=== PATIENT | female | born 1965 | race Caucasian/White ===

== ENCOUNTER 2016-10-25 20:56 | Emergency (ER) | payer OTHER ==
[2016-10-25 22:14] LABS: UA SPECIFIC GRAVITY <=1.005 (1.005-1.035); microscopic required? YES; urine erythrocyte TRACE (NEGATIVE)
[2016-10-25 22:21] LABS: PLATELET COUNT 261 x10^3mcL (130-400)
[2016-10-25 22:24] LABS: CALCIUM 9.2 mg/dL (8.5-10.1); CARBON DIOXIDE 20.2 mmol/L (21-32); CHLORIDE SERUM 104 mmol/L (98-107); CREATININE SERUM 0.6 mg/dL (0.6-1.0); GFR1 > 60 mL/min; GLUCOSE SERUM 93 mg/dL (74-106); POTASSIUM SERUM 3.6 mmol/L (3.5-5.1); SODIUM SERUM 137 mmol/L (136-145)
[2016-10-25 22:25] LABS: RED CELL DISTRIBUTION WIDTH 15.2 % (11.5-14.5)
[2016-10-25 22:35] LABS: ALBUMIN 3.9 g/dL (3.4-5.0); ALKALINE PHOSPHATASE 91 U/L (46-116); ALT/SGPT 36 U/L (14-59); AMYLASE 41 U/L (25-115); AST/SGOT 38 U/L (15-37); BILIRUBIN TOTAL 0.92 mg/dL (0.20-1.00); CHOLESTEROL 195 mg/dL (<200); LIPASE 136 IU/L (73-393); T4(THYROXINE) 9.9 ug/dL (4.7-13.3); TOTAL PROTEIN, SERUM 7.9 g/dL (6.4-8.2)
[2016-10-25 22:36] LABS: HDL CHOLESTEROL 88 mg/dL (40-60)
[2016-10-25 23:28] LABS: BAND NEUTROPHIL 4 % (0-10); BASOPHIL 0 % (0-2); MONOCYTE 3 % (0-7); SEGMENTED NEUTROPHILS 64 % (37-75)
[2016-10-25 23:32] LABS: rbc morphology (normal/abnorm) ABNORMAL (NORMAL)
[2016-10-26 00:44] VITALS: BP 121/72
== END 2016-10-26 00:44 | disposition home or self-care (01) ==
LOC: ED 20:56
PROVIDERS: Emergency Medicine
DX: R13.10 Dysphagia, unspecified (principal)
CPT/HCPCS: 83880

== ENCOUNTER 2017-07-26 19:22 | Emergency (ER) | payer OTHER ==
[~2017-07-26] VITALS: Ht 157.5 cm; Wt 93.0 kg
[2017-07-26 19:41] VITALS: Ht 157.5 cm; Wt 93.0 kg
[2017-07-26 20:29] LABS: CALCIUM 8.8 mg/dL (8.5-10.1); CARBON DIOXIDE 25.6 mmol/L (21-32); CHLORIDE SERUM 108 mmol/L (98-107); CREATININE SERUM 0.6 mg/dL (0.6-1.0); GFR1 > 60 mL/min; GLUCOSE SERUM 133 mg/dL (74-106); POTASSIUM SERUM 3.7 mmol/L (3.5-5.1); SODIUM SERUM 144 mmol/L (136-145)
[2017-07-26 20:38] LABS: ALBUMIN 3.5 g/dL (3.4-5.0); ALKALINE PHOSPHATASE 90 U/L (46-116); ALT/SGPT 60 U/L (14-59); AST/SGOT 99 U/L (15-37); BILIRUBIN TOTAL 0.35 mg/dL (0.20-1.00); LIPASE 180 IU/L (73-393); TOTAL PROTEIN, SERUM 7.3 g/dL (6.4-8.2)
[2017-07-26 22:01] VITALS: BP 131/74
== END 2017-07-26 22:01 | disposition home or self-care (01) ==
LOC: ED 19:22
PROVIDERS: Emergency Medicine
DX: K80.20 Calculus of gallbladder without cholecystitis without obstruction (principal)
CPT/HCPCS: Q0092

== ENCOUNTER 2017-07-26 22:57 | Emergency (ER) | payer OTHER | END 2017-07-26 23:42 | disposition left against medical advice (07) | LOC: ED 22:57 | DX: Z53.21 Procedure and treatment not carried out due to patient leaving prior to being seen by health care provider (principal) ==

== ENCOUNTER 2019-08-26 18:26 | Emergency (ER) | payer OTHER ==
[~2019-08-26] VITALS: Ht 154.9 cm; Wt 99.3 kg
[2019-08-26 19:09] VITALS: Ht 154.9 cm; Wt 99.3 kg
[2019-08-26 19:53] LABS: BASOPHIL % 0.7 % (0-2); PLATELET COUNT 333 x10^3mcL (130-400); RED CELL DISTRIBUTION WIDTH 14.5 % (11.5-14.5)
[2019-08-26 20:00] LABS: CALCIUM 9.5 mg/dL (8.5-10.1); CARBON DIOXIDE 27.5 mmol/L (21-32); CHLORIDE SERUM 106 mmol/L (98-107); CREATININE SERUM 0.8 mg/dL (0.6-1.0); GFR1 > 60 mL/min; GLUCOSE SERUM 111 mg/dL (74-106); POTASSIUM SERUM 3.8 mmol/L (3.5-5.1); SODIUM SERUM 144 mmol/L (136-145)
[2019-08-26 20:05] LABS: ALBUMIN 3.8 g/dL (3.4-5.0); ALKALINE PHOSPHATASE 146 U/L (46-116); ALT/SGPT 194 U/L (14-59); AMYLASE 40 U/L (25-115); AST/SGOT 307 U/L (15-37); BILIRUBIN TOTAL 1.1 mg/dL (0.20-1.00); LIPASE 155 IU/L (73-393); TOTAL PROTEIN, SERUM 7.7 g/dL (6.4-8.2)
[2019-08-26 20:21] LABS: UA SPECIFIC GRAVITY 1.015 (1.005-1.035); microscopic required? YES; urine erythrocyte 1+ (NEGATIVE)
[2019-08-26 23:22] VITALS: BP 129/78
== END 2019-08-26 23:22 | disposition home or self-care (01) ==
LOC: ED 18:26
PROVIDERS: Emergency Medicine
DX: K80.50 Calculus of bile duct without cholangitis or cholecystitis without obstruction (principal); Z98.890 Other specified postprocedural states
CPT/HCPCS: 36415; J0696; J1885; J2405; Q0092

== ENCOUNTER 2020-01-14 20:11 | Emergency (ER) | payer OTHER ==
[~2020-01-14] VITALS: Ht 157.5 cm; Wt 99.0 kg
[2020-01-14 20:19] VITALS: Ht 157.5 cm; Wt 99.0 kg
[2020-01-14 22:00] LABS: BASOPHIL % 0.3 % (0-2); PLATELET COUNT 327 x10^3mcL (130-400)
[2020-01-14 22:09] LABS: CALCIUM 9.1 mg/dL (8.5-10.1); CARBON DIOXIDE 26.3 mmol/L (21-32); CHLORIDE SERUM 107 mmol/L (98-107); CREATININE SERUM 0.8 mg/dL (0.6-1.0); GFR1 > 60 mL/min; GLUCOSE SERUM 131 mg/dL (74-106); POTASSIUM SERUM 4.2 mmol/L (3.5-5.1); SODIUM SERUM 143 mmol/L (136-145)
[2020-01-14 22:11] LABS: RED CELL DISTRIBUTION WIDTH 14.9 % (11.5-14.5)
[2020-01-14 22:18] LABS: ALBUMIN 3.9 g/dL (3.4-5.0); ALKALINE PHOSPHATASE 127 U/L (46-116); ALT/SGPT 190 U/L (14-59); AST/SGOT 372 U/L (15-37); BILIRUBIN TOTAL 0.7 mg/dL (0.20-1.00); LIPASE 182 IU/L (73-393)
[2020-01-14 22:35] VITALS: BP 116/62
== END 2020-01-14 22:35 | disposition home or self-care (01) ==
LOC: ED 20:11
PROVIDERS: Specialist
DX: K80.50 Calculus of bile duct without cholangitis or cholecystitis without obstruction (principal)